=== PATIENT | female | born 1975 | race Caucasian/White ===

== ENCOUNTER 2019-10-30 06:15 | Inpatient (IN) | payer OTHER ==
[~2019-10-30] VITALS: Ht 157.5 cm; Wt 63.5 kg
--- NOTE | ~2019-10-30 | EMS ---
[facility] [address] [place] [address] EMS Patient Care Report Name: Nalini Smith Room #: REG M.R.#: [id number] Admission: 10/30/19 Attend Phys: Discharge: Date of : 75 Report #: [id number] THIS REPORT FOR: //name// Report Transmitted: 10/30/2019 06:44 EMS Care Summary [place], [place]/[facility] Incident [id number] @ 10/30/2019 05:53 Incident Location [address] Patient CHRIS SMITH Female, 44 Years 1975 Patient Address Homeless Patient History Hypertension (HTN),Pancreatitis, Patient Allergies Codeine, Patient Medications None Reported, Chief Complaint I don't feel well, I haven't eaten/drink Disposition Transported No Lights/[place] Dispatch Reason Sick Person Transported To [facility] Narrative Called to the scene for a sick. Upon arrival, pt was CABAN x 3 sitting at the . She c/o feeling sick over the past 4 days or so and also stated she hasn't had anything to drink. She said she is homeless, walked to the and couldn't make it any farther to [facility] which was another 200 yards. She walked to the ambulance, climbed in and sat down w/o incident. Vitals obtained. En route: no changes. RR to ER. Arrived: pt taken to triage, pt care & report to ER [facility] [address] [facility] [place] [address] EMS Patient Care Report Name: Nalini Smith Room #: REG GINNA Zelaya#: [id number] Admission: 10/30/19 Attend Phys: Discharge: Date of : 75 Report #: [id number] staff. Initial Vitals @06:08P: 111,R: 14,BP: 144/76,Pain: 0/10,GCS: 15,SpO2: 99,Revised Trauma: 12, Assessments @06:03MENTAL:Person Oriented,Time Oriented,Place Oriented,Event Oriented,SKIN:HEENT:LUNG SOUNDS:General: Vomiting,Right Upper: Other,Right Lower: Other,General: Nausea,Left Upper: Other,Left Lower: Other,ABDOMEN:General: Vomiting,Right Upper: Other,Right Lower: Other,General: Nausea,Left Upper: Other,Left Lower: Other,PELVIS//GI:EXTREMITIES:Left Arm: No Abnormalities,Right Arm: No Abnormalities,Left Leg: No Abnormalities,Right Leg: No Abnormalities,PULSE:Radial: 2+ Normal,NEURO:No Abnormalities, Impression Vomiting Procedures @06:03ALS AssessmentResponse: UnchangedSucceeded@06:05StretcherResponse: Unchanged Timeline 05:51,Call Received 05:51,Dispatch Notified 05:53,Dispatched 05:55,En Route 06:02,On Scene 06:03,At Patient 06:03,ALS Assessment,Response: UnchangedSucceeded, 06:05,Stretcher,Response: Unchanged 06:07,Depart Scene 06:08,BP: 144/76 M,PULSE: 111,RR: 14 R,SPO2: 99 Ox,ETCO2: ,BG: ,PAIN: 0,GCS: 15, 06:08,At Destination 06:24,Call Closed Disclaimer v1.1 Copyright 2020 [employer] This EMS Care Summary contains data elements from the applicable legal record (which may be displayed differently). It is designed to provide pertinent information for the following purposes: continuity of care, clinical quality, and state data reporting. The complete legal record is available to ED staff and administrators of the receiving hospital in [employer]'s Patient Tracker. All data is provided "as is."
[2019-10-30 04:00] VITALS: BP 138/92
[2019-10-30 06:18] VITALS: BP 135/107
[2019-10-30 07:39] LABS: ABSOLUTE NEUTROPHILS 13.8 thou/uL (1.4-8.2); BASOPHILS 0.3 % (0.0-2.0); EOSINOPHILS 0.4 % (0.0-3.0); HEMATOCRIT 41.9 % (37.0-47.0); HEMOGLOBIN 14.5 gm/dL (12.0-15.0); LYMPHOCYTES 4.9 % (24.0-44.0); MCH 42.7 pg (26.0-34.0); MCHC 34.5 g/dL (28.0-37.0); MCV 123.9 fL (80.0-100.0); MONOCYTES 6.9 % (1.0-8.0); PLATELET COUNT 122 thou/uL (150-400); POLYS 87.5 % (36.0-66.0); RBC 3.38 mil/uL (4.20-5.00); RDW 14.7 % (10.5-14.5); WBC 15.7 thou/uL (4.0-11.0)
[2019-10-30 07:45] LABS: CALCIUM 8.6 mg/dL (8.5-10.1); CREATININE 0.6 mg/dL (0.6-1.0); POTASSIUM 3.4 mmol/L (3.5-5.1)
[2019-10-30 07:51] LABS: ALBUMIN 3.1 g/dL (3.4-5.0); TOTAL BILIRUBIN 2.3 mg/dL (0.2-1.0); TOTAL PROTEIN 7.8 g/dL (6.4-8.2)
[2019-10-30 08:53] LABS: URINE BILIRUBIN NEGATIVE (Negative); URINE BLOOD NEGATIVE (Negative); URINE COLOR YELLOW; URINE GLUCOSE-RANDOM* NEGATIVE (Negative); URINE KETONES NEGATIVE (Negative); URINE LEUKOCYTES-REFLEX TRACE (Negative); URINE PROTEIN (DIPSTICK) NEGATIVE (Negative)
[2019-10-30 08:58] LABS: URINE NITRITE-REFLEX POSITIVE (Negative)
[2019-10-30 08:59] LABS: URINE CLARITY HAZY
[2019-10-30 09:07] LABS: CASTS None Seen /LPF (None Seen); MUCUS 0-3 Light strn/LPF (None Seen); SQUAMOUS >10 Many /LPF (0-3)
[2019-10-30 09:08] LABS: BACTERIA-REFLEX >30 Many /HPF (None Seen); CRYSTALS None Seen /LPF (None Seen); URINE RBC None Seen /HPF (0-2); URINE WBC-REFLEX 0-5 Rare /HPF (0-5)
[2019-10-30 10:56] LABS: ANISOCYTOSIS 1+; MACROCYTES 2+; PLATELET ESTIMATE NORMAL
--- NOTE | 2019-10-30 12:32 | NUR ---
[place] [employer] RE-ACTIVATE FORMS FILLED OUT AND SENT TO [facility]. ID HAS BEEN SCANNED IN TO IMAGE NOW.
[2019-10-30 15:02] VITALS: BP 127/89
--- NOTE | 2019-10-30 16:39 | NUR ---
PATIENT ADMITTED FROM ER WITH PANCREATITIS. PATIENT ALERT AND ORIENTED X 3. C/O NAUSEA, ZOFRAN 4MG IV GIVEN. PATIENT HAS RIGHT HAND IV IN PLACE, WITH NS AT 100CC/HR. PATIENT IS HOMELESS, CM WORKING ON PLACE AFTER DISCHARGE. NO SKIN ISSUES NOTED. ADMISSION COMPLETED, REPORT GIVEN TO SONYA/RN.
[2019-10-30 19:40] VITALS: BP 139/89
--- NOTE | 2019-10-30 23:37 | NUR ---
1900ASSUMED CARE OF PT AFTER BEDSIDE REPORT. 2100 BASELINE ASSESSMENT COMPLETED AND AGREE WITH COLLEEN ANIMAL REHABILITATOR. PT SLEEPING WITH NO COMPLAINTS OF PAIN UPON AWAKENING, BOWEL SOUNDS NORMOACTIVE X 4 QUADS, TENDER TO TOUCH IN ALL 4 QUADS. PT STATES PAIN MEDS AND NAUSEA MEDS ARE HELPING, WILL CONTINUE TO MONITOR. 2200 URINE COLLECTED FOR DRUG SCREEN
[2019-10-31 02:41] LABS: AMP/METHAMP Negative (Negative); BARBITURATES Negative (Negative); BENZODIAZEPINES Negative (Negative); COCAINE Negative (Negative); METHADONE Negative (Negative); OPIATES POSITIVE (Negative); PCP Negative (Negative)
[2019-10-31 06:00] LABS: HEMATOCRIT 36.9 % (37.0-47.0); HEMOGLOBIN 12.8 gm/dL (12.0-15.0); MCH 43.1 pg (26.0-34.0); MCHC 34.5 g/dL (28.0-37.0); MCV 124.8 fL (80.0-100.0); RBC 2.96 mil/uL (4.20-5.00); RDW 14.3 % (10.5-14.5); WBC 11.6 thou/uL (4.0-11.0)
[2019-10-31 06:13] VITALS: BP 134/90
[2019-10-31 06:21] LABS: ALBUMIN 2.7 g/dL (3.4-5.0); CALCIUM 7.9 mg/dL (8.5-10.1); CREATININE 0.6 mg/dL (0.6-1.0); POTASSIUM 3.2 mmol/L (3.5-5.1); TOTAL BILIRUBIN 2.3 mg/dL (0.2-1.0); TOTAL PROTEIN 6.9 g/dL (6.4-8.2)
[2019-10-31 07:00] VITALS: BP 136/92
[2019-10-31 09:00] VITALS: BP 154/100
[2019-10-31 15:59] VITALS: BP 154/100
--- NOTE | 2019-10-31 16:13 | NUR ---
ASSESSMENT: CM REVIEWED CHART AND MET WITH PATIENT. PT IS ALERT AND ORIENTED X4. PT WAS ADMITTED DUE TO PANCREATITIS AND IS ON IV ANBX. PT REPORTS SHE IS HOMELESS AND HAS BEEN HOMELESS FOR ABOUT 16 YEARS OR SO. PT REPORTS SHE HAS STAYED IN [facility] IN THE [facility]ST BUT PREFERS TO BE ON HER OWN. PT REPORTS THAT SHE IS INDEPENDENT WITH ADLS AND AMBULATION. PT HAS HX OF ALCOHOL ABUSE. PT REPORTS THAT SHE GOES TO [facility] TO SEE HER PHYSICIAN AND REPORTS THAT SHE HAS BEEN GETTING TRANSPORTATION VIA THE BUS. PT REPORTS THAT THE BUS IS CURRENTLY FREE DURING THE PANDEMIC SHE STATES. PT WAS SEEN BY [employer] WHO IS ASSISTING PATIENT WITH MEDICAID APPLICATION. PT REPORTS SHES WILLING TO GO TO A SENIOR LIVING IF ONE CAN BE FOUND. CM ATTEMPTED TO CONTACT [facility] TO SEE IF THEY HAVE ROOM FOR HER AT DISCHARGE. [facility] IS CURRENTLY FULL. CM CONTACTED [facility] WHO REPORTS THEY ARE A DAYTIME SENIOR LIVING BUT PTS CANNOT STAY THE NIGHT. [facility] STATES THEY ARE CURRENTLY FULL AT THIS TIME BUT TO CALL DAILY AND CHECK BED STATUS DAILY AROUND 0930AM. THEY DO NOT REQUIRE A NEGATIVE COVID TEST. PT IS NOT MEDICALLY STABLE FOR DISCHARGE TODAY CM WILL CONTINUE TO FOLLOW TO ASSIST NEEDED.
--- NOTE | 2019-10-31 17:07 | NUR ---
PT TOOK SHOWER AND WASHED HAIR. PT IS ALERT X4 AND AMBLATES WITH STEADY GAIT. HAS D5 INFUSING AT 80/HR. DIET CHANGED TO SOFT. PT IS ON ROOM AIR NO PAIN OR RESP DISTRESS ON SHIFT.
[2019-10-31 19:00] VITALS: BP 137/96
[2019-11-01 02:50] VITALS: BP 130/88
--- NOTE | 2019-11-01 03:59 | NUR ---
VSS-AFEBRILE. LUNGS CLEAR-ROOM AIR. C/O ABDOMINAL PAIN THAT IS WELL RELIEVED WITH PO PAIN MEDICATION. RESTED WELL THROUGH NIGHT WITH FEW NEEDS. NO REPORTED N/V. OOB AD NAYANA-STEADY ON FEET. NO BM THIS SHIFT. CALLS APPROPRIATELY FOR ANY NEEDED ASSISTANCE.
[2019-11-01 04:51] LABS: HEMATOCRIT 32.1 % (37.0-47.0); MCH 42.4 pg (26.0-34.0); MCHC 34.4 g/dL (28.0-37.0); MCV 123.2 fL (80.0-100.0); RBC 2.6 mil/uL (4.20-5.00); RDW 14.5 % (10.5-14.5); WBC 10.2 thou/uL (4.0-11.0)
[2019-11-01 04:53] LABS: CALCIUM 7.7 mg/dL (8.5-10.1); CREATININE 0.4 mg/dL (0.6-1.0); POTASSIUM 3.1 mmol/L (3.5-5.1)
[2019-11-01 07:32] VITALS: BP 154/114
--- NOTE | 2019-11-01 08:17 | NUR ---
RECHECKED V.S. 98.4 18 84 152/94 O2 SAT= 99%RA TAKEN AT 08:00.
[2019-11-01 08:18] VITALS: BP 152/94
--- NOTE | 2019-11-01 10:21 | NUR ---
per hospitalist she will be ready to dc on monday. cm called [facility] to try to reserve her a bed for tomorrow. was told have to call the day you want the bed. dcp: [facility] - bedside nurse or manager of warehouse to call day of dc by or around 0930 # [phone]. if needs transport to [facility], can use cab voucher from security.
[2019-11-01 15:20] LABS: ALBUMIN 2.5 g/dL (3.4-5.0); TOTAL BILIRUBIN 1.6 mg/dL (0.2-1.0); TOTAL PROTEIN 6.2 g/dL (6.4-8.2)
[2019-11-01 16:00] VITALS: BP 148/82
[2019-11-01 19:37] VITALS: BP 140/90
--- NOTE | 2019-11-02 05:56 | NUR ---
1900 ASSUMED CARE OF PT AFTER BEDSIDE REPORT. 2100 BASELINE ASSESSMENT COMPLETED, R HAND IV DC'D SECONDARY TO POSSIBLE INFILTRATION/SWELLING CATHETER INTACT. PT IN TO TAKE SHOWER THEN IV RESTARTED IN LEFT CHAIDEZ WITH 1 ATTEMPT, PT CALLS FOR ASSIST WHEN NEEDED. PT STATES SHE IS OK WITH GOING TO [facility] TODAY IF SHE HAS TO BUT WOULD LIKE TO STAY ANOTHER DAY FOR PAIN CONTROL IF POSSIBLE, WILL CONTINUE TO MONITOR. 11/02/19 0500 LAB NOTIFIED OF BMP PUT IN SECONDARY TO LOW POTASSIUM LEVELS THE PAST FEW DAYS, KIMO NOTIFIED AND ORDER GIVEN.
[2019-11-02 08:18] VITALS: BP 161/60
[2019-11-02 08:31] LABS: CALCIUM 8.2 mg/dL (8.5-10.1); CREATININE 0.5 mg/dL (0.6-1.0)
[2019-11-02 08:36] LABS: POTASSIUM 2.9 mmol/L (3.5-5.1)
[2019-11-02] MEDS ORDERED: NORVASC10 MG PO (09:33)
[2019-11-02] MEDS ORDERED: KEFLEX500 M1 PO (09:34)
[2019-11-02 09:44] VITALS: BP 161/60
[2019-11-02 09:45] VITALS: BP 161/60
[2019-11-02 09:52] VITALS: BP 161/60
--- NOTE | 2019-11-02 10:33 | NUR ---
PATIENT TO DISCHARGE THIS AM SHE IS WAITING TO HAVE RX'S XS 2 FILLED. HOSPITAL IS PAYING PT IS HOMELESS BUT DOES NOT WANT TO GO TO [facility]. WANTS TO SAVE STAY UNTIL IT GETS COLD. CALLED PHARMACY XS 2 TO [facility] FILLING OF RX PATIENT STATES HAS THINGS TO DO TODAY. GAVE KCL AND MAG PO FOR LOW LAB RESULTS. IV ACSESS DCD AND ALL BELONGINGS PACKED TO BE TAKEN WITH PATIENT.
--- NOTE | 2019-11-02 10:38 | NUR ---
PT DISCHARGING TODAY SPOKE WITH PT'S NURSE (JÚNIOR) THAT PT IS NOT WANTING TO USE HER DAYS AVAILABLE FOR THE YEAR AT [facility] THEY CAN ONLY HAVE A 15 DAY STAY A YEAR AND SHE WANTS TO USE THAT DURING THE WINTER MONTHS. SHE TOLD HER NURSE SHE HAS SOMEWHERE TO GO NURSE HAS CAB VOUCHER AND [facility] IS VOUCHING FOR HER MEDS AT DISCHARGE WHICH THE NURSE INITIATED WITH THE PHARMACIST IN HOUSE TO GO TO OUTPT PHARMACY AND FILL SCRIPTS THE NURSE WILL SEND RECEIPT TO ADMINISTRATOR OF HOME HEALTH ([place]) OFFICE. SHE HAS NO OTHER NEEDS.
[2019-11-02 11:01] VITALS: BP 161/60
[2019-11-02 11:45] VITALS: BP 161/60
--- NOTE | 2019-11-02 11:47 | NUR ---
PATIENT DISCHARGED AT 1130 PATIENT AND HER BELONGINGS TAKEN TO ER ENTRANCE SHE IS HOMELESS AND SHE IS WALKED IN DIRECTION OF Q-TRIP. PT WITHOUT PAIN OR RESP DISTRESS AT DISCHARGE. [facility] FILLED RX'S XS 2.
== END 2019-11-02 11:56 | disposition home or self-care (01) | DRG 439 ==
LOC: ER 06:15 → EROBS 12:38 → 4S 15:02
PROVIDERS: Emergency Medicine; Nurse Practitioner; Nurse Practitioner Family; ADMIT Hospitalist; ATTEND Hospitalist
DX: K85.20 Alcohol induced acute pancreatitis without necrosis or infection (principal); N39.0 Urinary tract infection, site not specified; E46 Unspecified protein-calorie malnutrition; I10 Essential (primary) hypertension; K70.10 Alcoholic hepatitis without ascites; F17.210 Nicotine dependence, cigarettes, uncomplicated; D69.6 Thrombocytopenia, unspecified; F10.10 Alcohol abuse, uncomplicated; Y90.9 Presence of alcohol in blood, level not specified; Z88.5 Allergy status to narcotic agent; Z59.0 Homelessness; Z68.25 Body mass index [BMI] 25.0-25.9, adult
CPT/HCPCS: 10195